=== PATIENT | female | born 1985 | race African-American/Black ===

== ENCOUNTER 2021-08-25 19:01 | Emergency (ER) | payer MEDICAID, OTHER ==
[~2021-08-25] VITALS: Ht 175.3 cm; Wt 73.0 kg
[2021-08-25 20:13] LABS: BASOPHILS % 0.7 % (0.0-2.0); EOSINOPHILS % 3.3 % (0.0-5.0); HEMATOCRIT. 39.8 % (36.0-48.0); LYMPHOCYTES % 55.6 % (20.0-50.0); MEAN CORPUSCULAR HEMOGLOBIN 27.8 pg (28.0-32.0); MEAN CORPUSCULAR VOLUME 85.4 fL (81.0-99.0); MEAN PLATELET VOLUME 7.8 fl (7.4-10.4); MONOCYTES % 7.2 % (2.0-8.0); NEUTROPHILS % 33.2 % (40.0-76.0); PLATELET 254 x1000/uL (130-400); RED BLOOD CELL COUNT 4.66 mill/uL (4.2-5.4); RED CELL DISTRIBUTION WIDTH 15.8 % (11.6-14.6)
[2021-08-25 20:14] LABS: CHLORIDE 104 mEq/L (98-107)
[2021-08-25 20:23] LABS: HCG SCREEN NEGATIVE
[2021-08-25 22:04] VITALS: BP 115/75
== END 2021-08-25 22:04 ==
LOC: ER 19:01
DX: R42 Dizziness and giddiness (principal); Z98.890 Other specified postprocedural states; Z88.0 Allergy status to penicillin
CPT/HCPCS: 36415; 80053; 84703; 85025; 93005; 99284